=== PATIENT | male | born 1990 | race African-American/Black ===

== ENCOUNTER 2018-05-24 06:30 | Emergency (ER) | payer BC ==
[2018-05-24] MEDS: BACITRACIN TOPICAL OINT 14GM TUBE. TP (07:38)
== END 2018-05-24 07:40 | disposition home or self-care (01) ==
LOC: ER 06:30
DX: T23.322A Burn of third degree of single left finger (nail) except thumb, initial encounter (principal); Y92.89 Other specified places as the place of occurrence of the external cause
CPT/HCPCS: 99283

== ENCOUNTER → 2018-08-21 | Outpatient (CLI) | payer BC ==
[2018-05-24 06:46] VITALS: BP 152/84
[~2018-08-21] MED LIST: BACI28.34 TP; CARI250T PO; HYDR-971 PO; NAPR-514 PO
--- NOTE | 2018-08-22 01:53 | PAIN ---
DATE OF SERVICE: 08/21/2018 INITIAL CONSULTATION FOR PAIN CLINIC CHIEF COMPLAINT: Low back and right lower extremity pain. HISTORY OF PRESENT ILLNESS: This is a 28-year-old male who presents with history of pain for about 1 year and 3 months low back, right lower extremity, not a result of any specific injury or action he is aware of but had significant pain over the years. The patient reports multiple jobs with using his back with bad lifting form, using poor body mechanics over the years as well as heavy lifting work has added up over time. The patient reports pain now is in the low back, right lateral thigh, anterior thigh, medial lower leg and posterior lower leg as well as into the foot and toes involving numbness of the great toe and all the toes. The patient reports it is worse with standing, walking, changing positions, bending, stooping, standing on his feet for prolonged periods. It does not awaken him from sleep at night. He feels much better with sitting or lying down. It does not affect his bowel or bladder control but does affect his ability to walk and he has to favor the right lower extremity when he is ambulating. The patient reports he has had physical therapy, chiropractic treatment as well as doing exercise currently and physical therapy was just recently as last month. The patient reports no significant improvement with the physical therapy but did feel better for probably 3-4 days following each session and then, returns. The patient has tried naproxen as well as carisoprodol without significant decrease in pain. The patient did have an MRI scan of the lumbar spine showing L4-L5 broad-based midline, a right paracentral asymmetric disk bulge/protrusion, slight dorsal displacement of the descending right L5 nerve root and into the lateral recess, mild narrowing of the right lateral recess, neural foraminal normal in appearance without stenosis and there is mild central canal stenosis at L4-L5 as well. The patient rates his disability rate from 0-10, 10 being the worst, is a 7 with family home responsibilities and occupation, 10 with recreation, 8 with social activity, 3 with sexual behaviors, 0 with self care and 0 with life support activities. PAST MEDICAL HISTORY: Significant for only cigarette smoking, otherwise been in good health. PAST SURGICAL HISTORY: No previous surgeries. CURRENT MEDICATIONS: Include carisoprodol and Naprosyn. ALLERGIES: The patient has no known drug allergies. FAMILY HISTORY: Significant for no major medical problems or conditions that he is aware of. SOCIAL HISTORY: The patient does not drink alcohol. Smokes less than half pack a day and has for about 6 years. Does not use any illegal, illicit or recreational drugs. He is single, has 2 jobs where he is on his feet most of his working shifts and reports he only sleeps about 4-5 hours a night at the most because of his job schedules and feels that he is not rested. REVIEW OF SYSTEMS: The patient's review of systems is positive for those items mentioned in history of present illness. All systems reviewed and otherwise negative. It is complete, full and well documented on the patient's chart. PHYSICAL EXAMINATION: VITAL SIGNS: The patient's blood pressure 135/95, pulse 67, respirations are 16, temperature is 98.4 degrees Fahrenheit, height is 6 feet 1 inch and weight is 247 pounds. GENERAL: The patient is awake, alert, oriented, appropriate and very pleasant demeanor. HEENT: Head shows normocephalic and atraumatic. Extraocular movements are intact and symmetrical. Oral cavity: Mucous membranes moist and pink. Dentition is intact. NECK: Shows anterior throat supple without palpable lymphadenopathy noted. Swallow reflex symmetrical. CHEST: Shows normal on inspection. Breath sounds clear to auscultation bilaterally. HEART: Shows S1 and S2 clear. No murmurs auscultated. ABDOMEN: Soft, nontender and nondistended. No palpable organomegaly is noted. No rebound or guarding demonstrated. BACK: Shows spine grossly in the midline. Normal appearing thoracic kyphosis and lumbar lordotic curvature. Lumbar paraspinous muscle shows symmetrical on inspection. On palpation shows some mild tenderness diffusely in the inferior aspect of the lumbar paraspinous musculature but only diffusely without asymmetry, without atrophy or hypertrophy, without trigger points and without radiation. The patient shows no tenderness over the sacrum or sacroiliac regions with palpation and no tenderness over the spinous processes. The patient shows good rotational motion of the lumbar spine, both laterally greater than 10 degrees as well as extension greater than 10 degrees, forward flexion 45 degrees without pain reported. LOWER EXTREMITIES: Show deep tendon reflexes at 2+ in the patellar, 1+ tendo-calcaneus tendons are equal. Motor exam is strong with 5/5 dorsiflexion, extension, quadriceps and hamstring flexion symmetrical. Peripheral pulses are 1+ posterior tibia. No peripheral edema is noted. Lower extremities are warm and dry to touch, equal in color and appearance. Straight leg raise noted to be positive on the right about 35 degrees with decreased with knee flexion, left side is negative. Gaenslen's and Dale's maneuvers are negative bilaterally as well. The patient is able to stand, stand on his toes without difficulty or loss of balance, walks with a normal appearing gait for short distances He also states he does not appear to favor his right or left lower extremity significantly for short distance walking and is not using any assistive devices to ambulate. SKIN: Shows warm and dry, good turgor. No edema. No sores, rashes or bruising. IMPRESSION: 1. This is a 28-year-old male with approximate a year and 3-month history low back and right lower extremity pain in a radicular fashion. 2. MRI scan of the lumbar spine as noted. 3. Cigarette smoking. PLAN: Options were discussed with the patient including conservative medical management, physical therapy, interventional techniques and he would like to pursue most conservative course at this time. We discussed a lot about weight loss as the patient relates he would like to lose about 25 pounds in weight prior to considering any interventional techniques. He also relates that he was off work for about 6 weeks in the past 2 months and was getting better rest and his back did not bother him as much as it does now and nor his right lower extremity. We will give him some nutritional counseling and some guidelines to base his diet on today and have him follow up in the future if he desires interventional techniques at that time. The patient will be given a number to call and follow up on as needed basis per his wishes. JT CAAL MD DR: [email or web address]/wolf JOB#: [id number] / [id number] MARTIN Simons
== END | disposition home or self-care (01) ==
LOC: PNCL 13:02
PROVIDERS: ATTEND Anesthesiology
DX: M48.061 Spinal stenosis, lumbar region without neurogenic claudication (principal); M79.604 Pain in right leg; F17.200 Nicotine dependence, unspecified, uncomplicated
CPT/HCPCS: 99214